=== PATIENT | male | born 1935 | race Caucasian/White ===

== ENCOUNTER 2017-03-23 14:44 | Emergency (ER) | payer MEDICARE, BC ==
[2017-03-23 15:16] VITALS: BP 91/58
--- NOTE | 2017-03-23 15:49 | UC ---
UC General HPI - HPI Summary HPI Summary: Pt is accompanied by and son. Pt's family reports that pt has c/o intermittent dysuria and hematuria. Pt was seen by PCP last week and treated for UTI with antibiotic and "another pill". Pt reports that his urine is occasionally rust in color. Additionally, pt reports that he has a sore/ swollen penis. Denies injury or risk for STD. Pt reports that over the last 6 months he has had black stools and he has lost significant amount of weight over the last 12 months. Pt reports decreased appetite and decreased oral intake. - History of Current Complaint Hx Obtained From: Patient, Family/Mail Room Onset/Duration: Gradual Onset Timing: Constant Onset Severity: Mild Current Severity: Mild Pain Location at: end of penis Associated Signs & Symptoms: Positive: Other - swelling at [place]kins of penis, <Cathryn Carmen NP - Last Filed: 03/23/17 15:43> <Silvana Rivers - Last Filed: 03/23/17 16:23> - History of Current Complaint Chief Complaint: UCGeneralIllness Stated Complaint: URINARY/PERSONAL Time Seen by Provider: 03/23/17 15:17 - Allergy/Home Medications Allergies/Adverse Reactions: Allergies Allergy/AdvReac Type Severity Reaction Status Date / Time No Known Allergies Allergy Verified 03/23/17 15:16 PMH/Surg Hx/FS Hx/Imm Hx Previously Healthy: No - see PMH Cancer History: Prostate Cancer - Surgical History Surgical History: Yes - Family History Known Family History: Positive: Cardiac Disease - Social History Occupation: Retired Lives: With Family Alcohol Use: None Substance Use Type: None Smoking Status (MU): Light Every Day Tobacco Smoker <Cathryn Carmen NP - Last Filed: 03/23/17 15:43> Review of Systems Constitutional: Other - lasck of energy, able to complete ADLs Skin: Negative Eyes: Negative ENT: Negative Respiratory: Negative Cardiovascular: Negative Gastrointestinal: Other - hematochezia, weight loss, decreased appetite Genitourinary: Hematuria Motor: Negative Neurovascular: Negative Neurological: Weakness - generalized Psychological: Negative All Other Systems Reviewed And Are Negative: Yes <Cathryn Carmen NP - Last Filed: 03/23/17 15:43> Physical Exam Triage Information Reviewed: Yes Completion Of Physical Exam Limited Due To: Other - hard of hearing Appearance: Thin Vital Signs: Initial Vital Signs Temp 99.3 F 03/23/17 15:08 Pulse 95 03/23/17 15:08 Resp 17 03/23/17 15:08 BP 91/58 03/23/17 15:08 Pulse Ox 95 03/23/17 15:08 Vital Signs Reviewed: Yes Eyes: Positive: Other: - pale conconjunctiva ENT Exam: Normal Neck exam: Normal Respiratory Exam: Normal Cardiovascular Exam: Other Cardiovascular: Positive: Tachycardia Abdominal Exam: Other Abdomen Description: Positive: Other: - thin, non tender Musculoskeletal Exam: Other Musculoskeletal: Positive: Strength Limited @ - generalized Neurological Exam: Normal Skin Exam: Other - poor skin turgor, dry skin <Cathryn Carmen NP - Last Filed: 03/23/17 15:43> Vital Signs: Initial Vital Signs Temp 99.3 F 03/23/17 15:08 Pulse 95 03/23/17 15:08 Resp 17 03/23/17 15:08 BP 91/58 03/23/17 15:08 Pulse Ox 95 03/23/17 15:08 <Silvana Rivers - Last Filed: 03/23/17 16:23> Course/Dx - Course Course Of Treatment: I discussed with the pt and his family my many concerns discovered on PE mild dehydration, failure to thrive hematochezia, pale conjunctiva and weight loss. Pt's family discussed taht he has an appointment with his PCP on Sunday, that he will attempt to remaing hydrated prior to seeing PCP on sunday and will seek care at the closest ER as soon as possible. - Differential Dx - Multi-Symptom Differential Diagnoses: Other - failure to thrive Provider Diagnoses: yeast infection/penis. failure to thrive <Cathryn Carmen NP - Last Filed: 03/23/17 15:43> Discharge <Cathryn Carmen NP - Last Filed: 03/23/17 15:43> <Silvana Rivers - Last Filed: 03/23/17 16:23> - Discharge Plan Condition: Stable Disposition: HOME Prescriptions: Miconazole TOPICAL CREAM 2%* [Monistat 2%*] 1 applic TOPICAL BID #1 tube Patient Education Materials: Failure to Thrive in Older Adults (ED), Skin Yeast Infection (ED) Referrals: Mehran Tian MD [Primary Care Provider] - Additional Instructions: It is recommended that you follow up with your pCP as soon as possible. Please note that if your condition worsens at any time between now and the time of your next appointment with your PCP you need to seek care immediately at the closest ER Attestation Statement User Type: Provider - I was available for consult. This patient was seen by the SULEMAN. The patient was not presented to, seen by, or examined by me. -Betty <Silvana Rivers - Last Filed: 03/23/17 16:23>
== END 2017-03-23 15:50 | disposition home or self-care (01) ==
LOC: EDBD → UCCORT 14:44
DX: B37.49 Other urogenital candidiasis (principal); R62.7 Adult failure to thrive; Z87.440 Personal history of urinary (tract) infections; Z85.46 Personal history of malignant neoplasm of prostate; F17.210 Nicotine dependence, cigarettes, uncomplicated
CPT/HCPCS: 99202; G0463